=== PATIENT | female | born 1940 | race Caucasian/White ===

== ENCOUNTER 2022-02-28 13:40 | Observation (INO) | payer MEDICARE, OTHER, SELFPAY ==
[2022-02-28] VITALS (8 sets, daily range): BP systolic 127–163; BP diastolic 57–119; PULSE 68–84; RESP 14–20; TEMP 36.5–37.9; O2SAT 92–98
--- NOTE | 2022-02-28 14:04 | ED.GENADUL_ITS ---
Discharge Plan Disposition Patient Disposition: [facility] INPATIENT Condition: Serious Discharge Details Clinical Impression: Aspiration pneumonia, Dysphasia, Dementia Primary Care Provider: Joyce Brownlee ED Provider: Gail Hwang Home Meds and New Rx's Prescriptions: No Action fluticasone propion-salmeterol [Wixela Inhub] 250-50 mcg/dose blister with device 1 ea INHALATION BID Label Comments: TAKE 1 PUFF BY MOUTH TWICE A DAY phenazopyridine [Pyridium] 200 mg Tablet 200 mg PO TID PRN alprazolam 0.5 mg tablet 1 tab PO TID PRN (Reason: Agitation) Label Comments: TAKE 1 TABLET 3 TIMES/DAY NEEDED FOR ANXIETY/AGITATION (IF NO RESPONSE TO TRAZODONE,MIRTAZAPINE) rosuvastatin 5 mg tablet 1 tab PO DAILY Label Comments: TAKE 1 TABLET BY MOUTH EVERY DAY nitrofurantoin monohyd/m-cryst 100 mg capsule 100 cap PO BID Label Comments: TAKE 1 CAPSULE BY MOUTH TWICE A DAY FOR 7 DAYS losartan 50 mg tablet 1 tab PO DAILY Label Comments: TAKE 1 TABLET BY MOUTH EVERY DAY trazodone 50 mg tablet 1 tab PO BID Label Comments: TAKE 1 TABLET BY MOUTH TWICE A DAY metoprolol succinate 50 mg tablet extended release 24 hr 1 tab PO DAILY Label Comments: TAKE 1 TABLET BY MOUTH EVERY DAY donepezil 10 mg tablet 1 tab PO HS Label Comments: TAKE 1 TABLET BY MOUTH EVERY DAY AT NIGHT alendronate 70 mg tablet 1 tab PO QWEEK Label Comments: TAKE 1 TABLET BY MOUTH ONE TIME PER WEEK sertraline 100 mg tablet 1.5 tab PO DAILY Label Comments: TAKE 1 AND 1/2 TABLETS BY MOUTH EVERY DAY clopidogrel 75 mg tablet 1 tab PO DAILY Label Comments: TAKE 1 TABLET BY MOUTH EVERY DAY aspirin 81 mg Capsule,Delayed Release(Dr/Ec) 81 mg PO DAILY albuterol sulfate 90 mcg/actuation Hfa Aerosol Inhaler 2 puff INHALATION QID PRN Spiriva with HandiHaler 18 mcg capsule, w/inhalation device 1 inh INHALATION DAILY Label Comments: INHALE 1 CAPSULE INTO THE LUNGS DAILY. mirtazapine 7.5 mg tablet 2 tab PO DAILY Label Comments: TAKE 2 TABLETS BY MOUTH TWICE A DAY Medical Decision Making <SALLY Calderón - Last Filed: 02/28/22 15:57> This is an 82-year-old female presenting to the ER for evaluation of increased urination, agitation, altered mental status over the past 24 hours, is vacationing here until Saturday. Family called her PCP and they initiated her on the Macrobid, has had a total of 2 doses. She is also on baseline Xanax which they gave her this morning. Her son, her POA, would like to initiate a medical work-up but not extensively as she would not like any heroic efforts made. Plan is to initiate IV access, give IV fluid, Ativan, and obtain routine screening laboratory values. Given she is on Plavix, will obtain CT of the head. Will not pursue cardiac work-up as would not want to pursue more aggressive intervention per son. White blood cell count of 13.57. We will add on a COVID swab and chest x-ray. Electrolytes unremarkable, urinalysis reveals 40 ketones but negative for blood, nitrates, leuk esterase. The patient has had 2 doses of antibiotics and this may give false results for her urinalysis. Patient was unable to hold still to have an IV established. Plan is to give 1 mg p.o. Ativan and attempt to reattempt IV access. Patient would likely benefit from IV fluid given the ketones in her urine. IV access obtained. Plan is to provide 2 L of IV fluid Medical Records Medical records reviewed: Yes I reviewed the patient's medical records. Lab Data Lab results reviewed: Yes I reviewed the patient's lab results. Labs: Laboratory Tests Range/Units 02/28/22 02/28/22 02/28/22 13:51 14:15 14:15 WBC (4.4-10.8) 10^3/uL 13.57 H RBC (3.93-5.22) 10^6/uL 4.53 Hgb (11.2-15.7) g/dL 14.2 Hct (36.0-46.0) % 42.0 MCV (80-95) fL 93 MCH (27.0-33.0) pg 31.3 MCHC (32.0-36.0) % 33.8 RDW (11.7-14.6) % 13.4 Plt Count (130-400) 10^3/uL 203 MPV (8.0-11.0) fL 9.9 Immature Gran % 0.3 Neutrophils % 80.1 Lymphocytes % 12.5 Monocytes % 6.9 Eosinophils % 0.1 Basophils % 0.1 Nucleated RBC % (0.0-0.3) % 0.0 Absolute Neutrophils (1.2-6.7) 10^3/uL 10.87 H Absolute Lymphocytes (1.2-3.4) 10^3/uL 1.70 Absolute Monocytes (0.1-0.8) 10^3/uL 0.94 H Absolute Eosinophils (0.0-0.7) 10^3/uL 0.01 Absolute Basophils (0.0-0.2) 10^3/uL 0.01 Sodium (136-145) mmol/L 139 Potassium (3.5-5.1) mmol/L 3.9 Chloride (98-107) mmol/L 103 Carbon Dioxide (21.0-32.0) mmol/L 24.3 Anion Gap (3-11) mmol/L 11.7 H BUN (7-18) mg/dL 26 H Creatinine (0.55-1.02) mg/dL 0.9 Estimated GFR/1.73 m2 (mL/min/1.73m2) 59.80 Glucose (74-106) mg/dL 91 Calcium (8.5-10.1) mg/dL 9.1 Total Bilirubin (0.2-1.0) mg/dL 0.6 AST (15-37) U/L 27 ALT (14-59) U/L 24 Alkaline Phosphatase (46-116) U/L 81 Total Protein (6.4-8.2) g/dL 7.5 Albumin (3.4-5.0) g/dL 4.0 Lipase (73-393) U/L 14 Urine Color (Yellow) Yellow Urine Clarity (Clear) Clear Urine pH (5-8) 5.5 Ur Specific [place] (1.005-1.025) >= 1.030 H Urine Protein (Negative) mg/dL Negative Urine Ketones (Negative) mg/dL 40 H Urine Blood (Negative) Negative Urine Nitrite (Negative) Negative Urine Bilirubin (Negative) Small H Urine Urobilinogen (Up TO 0.2) EU/dL 0.2 Ur Leukocyte Esterase (Negative) Negative Urine Glucose (Negative) mg/dL Negative <SALLY Martino - Last Filed: 02/28/22 20:01> This is an 82-year-old female presenting to the ER for evaluation of increased urination, agitation, altered mental status over the past 24 hours, is vacationing here until Saturday. Family called her PCP and they initiated her on the Macrobid, has had a total of 2 doses. She is also on baseline Xanax which they gave her this morning. Her son, her POA, would like to initiate a medical work-up but not extensively as she would not like any heroic efforts made. Plan is to initiate IV access, give IV fluid, Ativan, and obtain routine screening laboratory values. Given she is on Plavix, will obtain CT of the hea d. Will not pursue cardiac work-up as would not want to pursue more aggressive intervention per son. White blood cell count of 13.57. We will add on a COVID swab and chest x-ray. Electrolytes unremarkable, urinalysis reveals 40 ketones but negative for blood, nitrates, leuk esterase. The patient has had 2 doses of antibiotics and this may give false results for her urinalysis. Patient was unable to hold still to have an IV established. Plan is to give 1 mg p.o. Ativan and attempt to reattempt IV access. Patient would likely benefit from IV fluid given the ketones in her urine. IV access obtained. Plan is to provide 2 L of IV fluid Care accepted in transfer from [facility] [address] [facility] chest shows aspiration pneumonia and large amount of stool in rectal vault Placed on Levaquin for likely aspiration pneumonia, COVID-negative Stable vitals in the emergency department, lactate elevated at 1.9, blood cultures pending Family states that patient is full CODE STATUS, this was confirmed Labs are indicative of dehydration Discussed case with Dr. Stafford, admitting hospitalist and after conversation, disimpaction performed, approximately 1.5 Of stool just did without incident Patient received 2 L of IV fluid hydration prior to my initial assessment Vitals have been stable throughout this encounter Patient will need likely suppositories and enema for continuous colon care HPI <SALLY Calderón - Last Filed: 02/28/22 15:57> General Mode of arrival: EMS . Date/Time Provider Initiated Documentation: 02/28/22 13:47 . Limitations to Documentation: other (Dementia, aphasia) . Information obtained by: family, EMS and old records reviewed . HPI Narrative: This is an 82-year-old female with past medical history that includes CAD, anxiety, aphasia, COPD, depression, hypertension, Alzheimer's dementia, does take Plavix, presenting to the ER for altered mental status, agitation, and increased urination over the past 24 hours. Family was able to contact her PCP and they called in Macrobid, she has had a total of 2 doses. They are here on vacation and the end of the week. Her son is her POA and present, reports that she should have her wishes on file but believes that she would not want life- saving measures. He is agreeable to initially obtaining IV access, giving IV fluid, a medication to help calm her down as she is anxious, and will obtain routine screening laboratory values. He states up until yesterday she seemed to be at her baseline mental status. Denies known recent trauma. Related Data Home Medications Medication Instructions Recorded Confirmed albuterol sulfate 90 mcg/actuation 2 puff inhalation QID PRN 02/28/22 02/28/22 aerosol inhaler alendronate 70 mg tablet 1 tab PO QWEEK 02/28/22 02/28/22 alprazolam 0.5 mg tablet 1 tab PO TID PRN Agitation 02/28/22 02/28/22 aspirin 81 mg capsule,delayed 81 mg PO DAILY 02/28/22 02/28/22 release clopidogrel 75 mg tablet 1 tab PO DAILY 02/28/22 02/28/22 donepezil 10 mg tablet 1 tab PO HS 02/28/22 02/28/22 fluticasone 250 mcg-salmeterol 50 1 ea inhalation BID 02/28/22 02/28/22 mcg/dose blistr powdr for inhalation (Teresa Inhub) losartan 50 mg tablet 1 tab PO DAILY 02/28/22 02/28/22 metoprolol succinate 50 mg 1 tab PO DAILY 02/28/22 02/28/22 tablet,extended release 24 hr mirtazapine 7.5 mg tablet 2 tab PO DAILY 02/28/22 02/28/22 nitrofurantoin 100 cap PO BID 02/28/22 02/28/22 monohydrate/macrocrystals 100 mg capsule phenazopyridine 200 mg tablet 200 mg PO TID PRN 02/28/22 02/28/22 (Pyridium) rosuvastatin 5 mg tablet 1 tab PO DAILY 02/28/22 02/28/22 sertraline 100 mg tablet 1.5 tab PO DAILY 02/28/22 02/28/22 tiotropium bromide 18 mcg capsule 1 inh inhalation DAILY 02/28/22 02/28/22 with inhalation device (Spiriva with HandiHaler) trazodone 50 mg tablet 1 tab PO BID 02/28/22 02/28/22 Allergies Allergy/AdvReac Type Severity Reaction Status Date / Time azithromycin Allergy Unknown Unverified 02/28/22 16:34 lidocaine Allergy Unknown Unverified 02/28/22 16:34 Penicillins Allergy Unknown Unverified 02/28/22 16:34 procaine Allergy Unknown Unverified 02/28/22 16:34 General Stated Complaint: AMS/LOC DARRIUS: 3 Review of Systems <SALLY Calderón - Last Filed: 02/28/22 15:57> Unobtainable due to mental status PFS <SALLY Calderón - Last Filed: 02/28/22 15:57> All Active Problems (Updated 02/28/22 @ 20:01 by SALLY Martino) Aspiration pneumonia (Acute) Dysphasia (Acute) Dementia (Chronic) Social History Smoking/Tobacco Use Status: Former Tobacco Use Smoking risk assessment performed?: Yes Alcohol Intake: never Drug use: Never Substance use type: does not use Additional Social history: lives with son Exam <SALLY Calderón - Last Filed: 02/28/22 15:57> Const General: comfortable and anxious Orientation: alert, awake and oriented to person (At baseline per son) Limitations: other limitations (Dementia, aphasia) [facility] Head: normal to inspection, normocephalic and atraumatic Face and sinus: normal facial exam Mouth: moist mucous membranes abnormal (Slightly dry) Eyes General: appearance normal, both eyes and all related structures Conjunctivae: conjunctivae normal Neck Neck: normal visual inspection, full ROM, trachea midline, supple and nontender Resp Effort & Inspection: normal respiratory effort and able to speak in complete sentences Auscultation: clear to auscultation bilaterally Cardio Rate: regular rate Rhythm: regular rhythm GI Inspection: normal to inspection Palpation: soft, not firm, no guarding, no pulsatile masses and nontender Auscultation: normal bowel sounds Back/Spine/Pelvis Back: No back tenderness Skin General skin exam: no rashes or lesions noted Neuro General: patient alert, patient awake, moves all extremities and no focal motor deficits Motor: muscle tone normal throughout Extrem General: normal to inspection, full ROM, capillary refill normal, no pedal edema and no calf tenderness Psych Appearance: grossly normal Mental Status: mental status grossly normal Course <SALLY Calderón - Last Filed: 02/28/22 15:57> Vital Signs Vital signs: Vital Signs Temperature 36.6 C 02/28/22 13:32 Respiratory Rate 18 02/28/22 13:32 Blood Pressure 131/57 L 02/28/22 13:32 Temperature 36.6 C 02/28/22 13:32 Temperature Source Skin 02/28/22 13:32 Respiratory Rate 18 02/28/22 13:32 Respiratory Effort 02/28/22 13:39 Blood Pressure 131/57 L 02/28/22 13:32 Blood Pressure Position Sitting 02/28/22 13:32 Sign Out <SALLY Calderón - Last Filed: 02/28/22 15:57> Sign Out Data: Sign Out Comment: Awaiting a head CT, chest x-ray, IV hydration and reassessment. Last updated by [facility] PA at 02/28/22 15:47
[2022-02-28 14:06] LABS: Bilirubin Small (Negative); Blood Negative (Negative); Clarity Clear (Clear); Glucose Negative (Negative); Ketones 40 mg/dL (Negative); Leukocyte Esterase Negative (Negative); Nitrite Negative (Negative); Specific Gravity >= 1.030 (1.005-1.025); Urobilinogen 0.2 EU/dL (Up TO 0.2); pH 5.5 (5-8)
[2022-02-28 14:23] LABS: Abs Immature Grans 0.04 10^3/uL (0.0-0.06); Absolute Neutrophil Count 10.87 10^3/uL (1.2-6.7); Basophils % 0.1; Eosinophils % 0.1; HGB 14.2 g/dL (11.2-15.7); Immature Grans % 0.3; Lymphocytes % 12.5; MCH 31.3 pg (27.0-33.0); MCHC 33.8 % (32.0-36.0); MCV 93 fL (80-95); MPV 9.9 fL (8.0-11.0); Monocytes % 6.9; Neutrophils % 80.1; Platelet Count 203 10^3/uL (130-400); RBC 4.53 10^6/uL (3.93-5.22); RDW 13.4 % (11.7-14.6); RDW-SD 45.9 fL; WBC 13.57 10^3/uL (4.4-10.8)
[2022-02-28 14:24] LABS: Absolute Basophil Count 0.01 10^3/uL (0.0-0.2); Absolute Eosinophil Count 0.01 10^3/uL (0.0-0.7); Absolute Monocyte Count 0.94 10^3/uL (0.1-0.8)
--- NOTE | 2022-02-28 14:38 | DI.RAD_ITS ---
Exam(s) XR CHEST 1V IN DI DEPT EXAM: XR CHEST 1V IN DI DEPT CLINICAL HISTORY: ams TECHNIQUE: 2D digital imaging was performed. COMPARISON: No exams were available for comparison FINDINGS: Limited exam due to patient inability to cooperate. LUNGS: Patchy density right lower lung field. There is some elevation of the right diaphragm. No pl eural abnormality seen. HEART: Normal. AORTA: Tortuous. BONES: Right shoulder prosthesis. Soft tissues: Unremarkable. IMPRESSION: Findings suspicious for right lower lobe infiltrate. DATA REPOSITORY: RADIATION DOSE DELIVERED:
--- NOTE | 2022-02-28 14:45 | DI.CT_ITS ---
Exam(s) CT HEAD WO EXAM: CT HEAD WO CLINICAL HISTORY: ams, on plavix. TECHNIQUE: Imaging Protocol: Axial computed tomography images with coronal and sagittal reformatted images were created and reviewed COMPARISON: No exams were available for comparison FINDINGS: Ventricles and Extra axial spaces: Atrophy. Normal in size and morphology for the patient's age. Hemorrhage: None. Cerebral parenchyma: Atrophy. White matter changes consistent with small vessel disease. Midline shift: None. Brainstem/Cerebellum: Normal. Calvarium: Normal. Visualized Paranasal sinuses/Mastoids: Clear. Exam limited by a patient motion. Patient not able to cooperate with exam. IMPRESSION: No acute abnormality. RADIATION DOSE DELIVERED: 806.35 mGy.cm Total DLP 806.35 mGy.cm Total DLP DATA REPOSITORY: All CT scans at this facility are submitted to the National Radiology Data Registry (NRDR) Dose Index Registry (DIR) with the [employer] (ACR). RADIATION OPTIMIZATION: All CT scans at this facility use at least one of these dose optimization te chniques: automated exposure control; mA and/or kV adjustment per patient size (includes targeted exa ms where dose is matched to clinical indication); or iterative reconstruction.
[2022-02-28] MEDS: LORazepam 1 MG TAB PO (14:50)
[2022-02-28 14:51] LABS: ALT 24 U/L (14-59); AST 27 U/L (15-37); Alkaline Phosphatase 81 U/L (46-116); Anion Gap 11.7 mmol/L (3-11); BUN 26 mg/dL (7-18); Bilirubin, Total 0.6 mg/dL (0.2-1.0); CO2 24.3 mmol/L (21.0-32.0); CREATININE 0.9 mg/dL (0.55-1.02); Calcium 9.1 mg/dL (8.5-10.1); Chloride 103 mmol/L (98-107); Glucose 91 mg/dL (74-106); Lipase 14 U/L (73-393); Potassium 3.9 mmol/L (3.5-5.1); Sodium 139 mmol/L (136-145); Total Protein 7.5 g/dL (6.4-8.2)
--- NOTE | 2022-02-28 14:55 | NUR.NOTE ---
Nursing Note: Difficulty getting IV due to pt movement despite 4 attempts and 4 staff at bedside. PA made aware, PO Lorazepam ordered and given. Will allow medication some time for effect and then will attempt again. Son at bedside, able to get few sips of water in
[2022-02-28] MEDS: Normal Saline 1,000 ML 1000 ML IV ×2 (15:31→17:17)
[2022-02-28 15:48] LABS: Source Nasal/Nares
--- NOTE | 2022-02-28 16:45 | DI.CT_ITS ---
Exam(s) CT CHEST/ABD/PEL WO EXAM: CT CHEST/ABD/PEL WO CLINICAL HISTORY: possible pneumonia, urinary frequency. TECHNIQUE: Imaging Protocol: Axial computed tomography images with coronal and sagittal reformatted images were created and reviewed CONTRAST MATERIAL: Intravenous: none Oral: None COMPARISON: CR XR CHEST 1V IN DI DEPT from 02/28/2022 FINDINGS: CHEST: LUNGS: There is tree in bud opacities in the superior segment of the right lower lobe as well as some infiltrate in both lower lobes, right more so than left. Mild infiltrate in the right middle lobe a nd lingular segment of the left lung. There are no pleural effusions. No bronchiectasis.. MEDIASTINUM: No obvious hilar nor mediastinal adenopathy. CARDIAC: Mild cardiomegaly. No pericardial effusion.Caliber thoracic aorta is upper normal. OSSEOUS: No significant osseous lesions.. ABDOMEN: There is no ascites. LIVER: There are no obvious focal hepatic lesions evident of this noninfused study. GALLBLADDER/BILIARY: Too much motion artifact for accurate assessment. CBD is not obviously dilated. PANCREAS: Too much motion artifact for accurate assessment. Appears somewhat atrophic. No obvious m ass. SPLEEN: Spleen is not enlarged. No obvious intrasplenic lesions. ADRENALS: There are no significant adrenal masses. KIDNEYS: No calculi nor hydronephrosis. No obvious solid renal masses. No cysts evident. ABDOMINAL AORTA: Abdominal aorta is not enlarged. LYMPH NODES: There is no retroperitoneal nor para-aortic adenopathy. ABDOMINAL WALL/GI: No evidence of significant anterior abdominal wall nor inguinal hernia. PELVIS: LYMPH NODES: There is no intrapelvic nor inguinal adenopathy. GI: No evidence of obvious appendicitis.No evidence of sigmoid diverticulitis.Abundant fecal material noted in the rectum. Air-filled bowel loops proximal to this. Rectum is distended to 7.5 x 7.5 cm. . Some stranding around the rectal wall is noted. No free fluid collection. URINARY BLADDER: No calculi nor obvious masses evident REPRODUCTIVE: Uterus size age-appropriate. No abnormal adnexal masses. OSSEOUS: Multilevel degenerative changes. No acute fractures. No osseous lesions. IMPRESSION: 1. Bilateral infiltrates as described above. No pleural effusions 2. Mild cardiomegaly. No pericardial effusion. 3. Rectal distension (7.5 cm diameter) and abundant fecal material in the rectum with air-filled shruti l loops proximal to this. Also abnormal stranding of the rectal wall. No hydronephrosis. RADIATION DOSE DELIVERED: 1,158.64mGy.cm Total DLP DATA REPOSITORY: All CT scans at this facility are submitted to the National Radiology Data Registry (NRDR) Dose Index Registry (DIR) with the [employer] (ACR). RADIATION OPTIMIZATION: All CT scans at this facility use at least one of these dose optimization te chniques: automated exposure control; mA and/or kV adjustment per patient size (includes targeted exa ms where dose is matched to clinical indication); or iterative reconstruction.
[2022-02-28 16:56] LABS: Lactate 1.9 mmol/L (0.6-1.4)
[2022-02-28 16:57] LABS: COVID-19 PCR Negative (Negative)
--- NOTE | 2022-02-28 17:00 | RT.EKG_ITS ---
APPROVED REPORT Exam: Resting ECG Reason for Exam: [facility] Patient Location: E HR:82 bpm ECG Measurements Heart Rate 82 AXIS GA 259 P 77 QRSd 88 QRS -20 QT 398 T 72 QTc 464 Conclusion Sinus rhythm...normal P axis, V-rate 60- 99 Prolonged GA interval...GA >220, V-rate 50- 90 Low voltage, extremity leads...all extremity leads <0.5mV
[2022-02-28] MEDS: LORazepam 2 MG/ML VIAL 0.5 MG IVP ×2 (17:14→19:55)
[2022-02-28] MEDS: cefTRIAXone 2 GM/50 ML BAG IVPB (18:31)
--- NOTE | 2022-02-28 18:50 | DI.VRAD_ITS ---
PROCEDURE INFORMATION: Exam: CT Chest Without Contrast; Diagnostic Exam date and time: 02/28/2022 5:42 PM Age: 82 years old Clinical indication: Other: Urinary frequency; Other: AMS TECHNIQUE: Imaging protocol: Diagnostic computed tomography of the chest without contrast. Total images: 3115 COMPARISON: CR XR CHEST 1V IN DI DEPT 02/28/2022 4:02 PM FINDINGS: Images are mildly degraded by motion. Lungs: There are subsegmental regions of tree in bud opacities in the superior segment of the right lower lobe and posteriorly within bilateral upper lobes. There is reticulation at both lung bases. Minimal right-sided traction bronchiectasis. No consolidation. Lung nodules: No suspicious pulmonary nodule. Pleural spaces: No pneumothorax. No pleural effusion. Heart: Moderate coronary artery calcification. Lymph nodes: No mediastinal, hilar or axillary adenopathy. Vasculature: Unremarkable. No aortic aneurysm. Diaphragm: Small hiatal hernia. Intraperitoneal space: Visualized upper abdomen is unremarkable. Bones/joints: Right shoulder replacement. Old compression deformity inferior endplate T9 associated with T9-10 degenerative disc disease. Moderate old compression fracture of T12. Soft tissues: Extrathoracic soft tissues are unremarkable. IMPRESSION: 1. Bilateral subsegmental regions of probable aspiration pneumonitis. 2. Possible early basilar fibrosis. PROCEDURE INFORMATION: Exam: CT Abdomen And Pelvis Without Contrast Exam date and time: 02/28/2022 5:42 PM Age: 82 years old Clinical indication: Other: Urinary frequency; Other: AMS TECHNIQUE: Imaging protocol: Computed tomography of the abdomen and pelvis without contrast. COMPARISON: CR XR CHEST 1V IN DI DEPT 02/28/2022 4:02 PM FINDINGS: Lungs: As above. Liver: No gross mass. Gallbladder and bile ducts: No calcified stones. No definite gallbladder wall thickening or biliary dilatation. Pancreas: Significant diffuse pancreatic atrophy. Spleen: No splenomegaly. Adrenal glands: No adrenal nodule. Kidneys and ureters: No hydronephrosis. No renal or ureteral calculi. Stomach and bowel: Stool distends the rectum which has a mildly thickened hyperemic wall and contains foci of intramural gas. There is perirectal stranding. No small bowel dilatation. Appendix: No evidence of appendicitis. Intraperitoneal space: No free air.Moderate presacral edema. Vasculature: No abdominal aortic aneurysm. Lymph nodes: No significant adenopathy. Urinary bladder: No bladder stone. No definite bladder wall thickening. Reproductive: Unremarkable as visualized. Bones/joints: Significant lower lumbar facet arthropathy. Thoracolumbar scoliosis. Lumbar degenerative disc disease most significant at L1-L2 and L2-L3. Soft tissues: Extra-abdominal soft tissues are unremarkable. IMPRESSION: 1. No signs of pyelonephritis or cystitis on this noncontrast study. 2. Stercoral colitis. Dictated and Authenticated by: Luis Correa MD. Ordering:KIARA Reynolds MD
[2022-02-28] MEDS: levoFLOXacin 750 MG/150 ML BAG 100 MG IVPB (19:55)
--- NOTE | 2022-02-28 20:25 | HPE_ITS ---
Date of service: 02/28/22 Time of Service: 20:25 Assessment and Plan Assessment and plan (1) Stercoral colitis: Status: Acute Assessment and plan: 82 yo woman with likely chronic constipation (rectal wall thickening) resulting in stercoral colitis confirmed on CT imaging. Her stool load is very large and is causing significant distention of her rectum (7.2cm). I have requested for the ED provider to attempt a disimpaction as I worry an enema will not make it through the amount of stool present. With this distension she is certainly at risk for sepsis from gut translocation, although she is currently stable. Given this risk I do think it is important to cover abdominal pathogens. She has a pen icillin allergy so will keep Levaquin but add Flagyl for added abdominal coverage. - continue Levaquin - start Flagyl - Heme-occult testing - flat plate in am - low dose morphine prn for pain - f/u blood culture - full liquid diet as able - consider surgical consultation if not improving (2) Acute constipation: Status: Acute Assessment and plan: Likely acute on chronic constipation due to rectal wall thickening and prescence of stercoral colitis. ED provider to attempt disimpaction, but will also order for mineral oil enemas as well as an aggressive bowel regimen. - disimpaction - mineral oil enema after disimpaction and prn - Miralax standing bid - docusate/senna standing (3) Aspiration pneumonia: Status: Acute Assessment and plan: Concern for aspiration on CT. She is already on Levaquin which will cover respiatory pathogens. - ADVANCED DEVELOPER consultation - Full liquid diet for now as able (4) Dementia: Status: Chronic Assessment and plan: Altered from baseline (5) UTI (urinary tract infection): Status: Acute Assessment and plan: Received 2 doses of Macrobid as outpatient. UA in the ED looks clean. Levaquin will cover urinary pathogens if any are left. She is also on pyridium at home and will continue this. (6) Dysphasia: Status: Acute Assessment and plan: As above - ADVANCED DEVELOPER consult (7) Agitation: Status: Acute Assessment and plan: On chronic benzo's - will continue these. Some of the agitation could be due to pain from the rectal distention and colitis. I will put a low dose prn morphin on the OCT. (8) Altered mental status: Status: Acute Assessment and plan: As above - will have options for pain control in addition to her home medications including trazodone, sertraline, Ativan (9) Leukocytosis: Status: Acute Assessment and plan: reactive versus infection (10) COPD (chronic obstructive pulmonary disease): Status: Chronic Assessment and plan: Will continue home inhalers (11) HTN (hypertension): Status: Chronic Assessment and plan: Continue home meds - losartan and metoprolol (12) HLD (hyperlipidemia): Status: Acute Assessment and plan: Continue home rosuvastatin History of Present Illness Narrative: This is a 82 yo woman who is vacationing here and developed what was thought to be a UTI with increased urination, agitation and AMS. Her family called her PCP who prescribed nitrofurantoin. She was not improving and so was brought to the ED. On evaluation in the ED she was found to have anormal UA (after 2 doses of Macrobid), chest CT findings consistent with aspiration pneumonitis as well as sterocoral colitis with significant constipation and rectal wall thickening (no evidence of perforation). She was quite agitated in the ED and has received a significant amount of Ativan (she is on this chronically). She was started on Levaquin in the ED for concern of aspiration pneumonia. Her son is the DPOA who spoke to the ED providing and said they would not want heroic measures but told the ED provider she is full code. Her baseline mental status is abnormal however she does recognize family and is not as agitated as on presentation. She is significantly more confused from baseline. She had a disimpaction done in the ED which I followed with a mineral oil enema. She is unable to provide a history due to agitation. Review of Systems Unobtainable due to mental status [facility] All Active Problems (Updated 02/28/22 @ 21:45 by Barb Rivera MD) HLD (hyperlipidemia) (Acute) HTN (hypertension) (Chronic) COPD (chronic obstructive pulmonary disease) (Chronic) Leukocytosis (Acute) Altered mental status (Acute) Agitation (Acute) Acute constipation (Acute) UTI (urinary tract infection) (Acute) Stercoral colitis (Acute) Aspiration pneumonia (Acute) Dysphasia (Acute) Dementia (Chronic) Social History Smoking/Tobacco Use Status: Former Tobacco Use Smoking risk assessment performed?: Yes Alcohol Intake: never Drug use: Never Substance use type: does not use Additional Social history: lives with son Meds Allergies and Home Medications Allergies Allergy/AdvReac Type Severity Reaction Status Date / Time azithromycin Allergy Unknown Unverified 02/28/22 16:34 lidocaine Allergy Unknown Unverified 02/28/22 16:34 Penicillins Allergy Unknown Unverified 02/28/22 16:34 procaine Allergy Unknown Unverified 02/28/22 16:34 Home Medications Medication Instructions Recorded Confirmed Type albuterol sulfate 90 mcg/actuation 2 puff inhalation QID PRN 02/28/22 02/28/22 History aerosol inhaler alendronate 70 mg tablet 1 tab PO QWEEK 02/28/22 02/28/22 History alprazolam 0.5 mg tablet 1 tab PO TID PRN Agitation 02/28/22 02/28/22 History aspirin 81 mg capsule,delayed 81 mg PO DAILY 02/28/22 02/28/22 History release clopidogrel 75 mg tablet 1 tab PO DAILY 02/28/22 02/28/22 History donepezil 10 mg tablet 1 tab PO HS 02/28/22 02/28/22 History fluticasone 250 mcg-salmeterol 50 1 ea inhalation BID 02/28/22 02/28/22 History mcg/dose blistr powdr for inhalation (Teresa Jacquesub) losartan 50 mg tablet 1 tab PO DAILY 02/28/22 02/28/22 History metoprolol succinate 50 mg 1 tab PO DAILY 02/28/22 02/28/22 History tablet,extended release 24 hr mirtazapine 7.5 mg tablet 2 tab PO DAILY 02/28/22 02/28/22 History nitrofurantoin 100 cap PO BID 02/28/22 02/28/22 History monohydrate/macrocrystals 100 mg capsule phenazopyridine 200 mg tablet 200 mg PO TID PRN 02/28/22 02/28/22 History (Pyridium) rosuvastatin 5 mg tablet 1 tab PO DAILY 02/28/22 02/28/22 History sertraline 100 mg tablet 1.5 tab PO DAILY 02/28/22 02/28/22 History tiotropium bromide 18 mcg capsule 1 inh inhalation DAILY 02/28/22 02/28/22 History with inhalation device (Spiriva with HandiHaler) trazodone 50 mg tablet 1 tab PO BID 02/28/22 02/28/22 History Exam Narrative Exam Narrative: Gen: NAD, normal respiratory effort, well-nourished HENT: PERRL Chest: No respiratory distress, normal appearance of chest, clear to auscultat ion bilaterally, no crackles or wheezes, normal inspiratory effort Heart: regular rate and rhythym, no murmurs, rubs or gallops Abdomen: Non-distended, soft, non tender Extremities: No clubbing, edema, cyanosis, rashes Neuro: AAOx3 , non focal Psych: cooperative, appropriate mental affect Results Imaging CT scan - chest: report reviewed and image reviewed CT scan - pelvis: report reviewed and image reviewed Labs Result diagrams: 02/28/22 14:15 02/28/22 14:15 Labs: Laboratory Results - last 24 hr 02/28/22 02/28/22 02/28/22 13:51 14:15 14:15 WBC 13.57 H RBC 4.53 Hgb 14.2 Hct 42.0 MCV 93 MCH 31.3 MCHC 33.8 RDW 13.4 Plt Count 203 MPV 9.9 Immature Gran % 0.3 Neutrophils % 80.1 Lymphocytes % 12.5 Monocytes % 6.9 Eosinophils % 0.1 Basophils % 0.1 Nucleated RBC % 0.0 Absolute Neutrophils 10.87 H Absolute Lymphocytes 1.70 Absolute Monocytes 0.94 H Absolute Eosinophils 0.01 Absolute Basophils 0.01 VBG Lactate Sodium 139 Potassium 3.9 Chloride 103 Carbon Dioxide 24.3 Anion Gap 11.7 H BUN 26 H Creatinine 0.9 Estimated GFR/1.73 m2 59.80 Glucose 91 Calcium 9.1 Total Bilirubin 0.6 AST 27 ALT 24 Alkaline Phosphatase 81 Total Protein 7.5 Albumin 4.0 Lipase 14 Urine Color Yellow Urine Clarity Clear Urine pH 5.5 Ur Specific Garber >= 1.030 H Urine Protein Negative Urine Ketones 40 H Urine Blood Negative Urine Nitrite Negative Urine Bilirubin Small H Urine Urobilinogen 0.2 Ur Leukocyte Esterase Negative Urine Glucose Negative COVID-19 Source SARS-CoV-2 (PCR) 02/28/22 02/28/22 15:33 16:40 WBC RBC Hgb Hct MCV MCH MCHC RDW Plt Count MPV Immature Gran % Neutrophils % Lymphocytes % Monocytes % Eosinophils % Basophils % Nucleated RBC % Absolute Neutrophils Absolute Lymphocytes Absolute Monocytes Absolute Eosinophils Absolute Basophils VBG Lactate 1.9 H Sodium Potassium Chloride Carbon Dioxide Anion Gap BUN Creatinine Estimated GFR/1.73 m2 Glucose Calcium Total Bilirubin AST ALT Alkaline Phosphatase Total Protein Albumin Lipase Urine Color Urine Clarity Urine pH Ur Specific Garber Urine Protein Urine Ketones Urine Blood Urine Nitrite Urine Bilirubin Urine Urobilinogen Ur Leukocyte Esterase Urine Glucose COVID-19 Source Nasal/Nares SARS-CoV-2 (PCR) Negative Last Vital Signs Temp 36.5 C 02/28/22 17:05 Pulse 80 02/28/22 17:05 Resp 20 02/28/22 17:05 BP 131/57 L 02/28/22 13:36 Pulse Ox 94 02/28/22 17:05
[2022-02-28] MEDS: metroNIDAZOLE 500 MG/100 ML BAG 100 MG IVPB (22:19)
[2022-02-28] MEDS: Mirtazapine 15 MG TAB PO (22:19)
[2022-02-28] MEDS: traZODone 50 MG TAB PO (22:19)
[2022-02-28] MEDS: Donepezil 5 MG TAB 10 MG PO (22:19)
[2022-02-28] MEDS: Mineral Oil-Enema 133 ML BTL PR (22:55)
[2022-03-01] VITALS (9 sets, daily range): BP systolic 127–169; BP diastolic 72–90; PULSE 53–81; RESP 14–20; TEMP 36.8–37.2; O2SAT 92–97
[2022-03-01] MEDS: MORPHine 10 MG/ML VIAL IVP (01:12)
[2022-03-01 02:27] LABS: Troponin I < 50 ng/L (<or=60)
[2022-03-01] MEDS: LORazepam 0.5 MG TAB PO ×2 (04:54→07:39)
[2022-03-01] MEDS: metroNIDAZOLE 500 MG/100 ML BAG 100 MG IVPB ×3 (06:14→21:36)
[2022-03-01] MEDS: Metoprolol CR 50 MG TABCR PO (07:39)
[2022-03-01] MEDS: Clopidogrel 75 MG TAB PO (07:39)
[2022-03-01] MEDS: Polyethylene Glycol 3350 17 GM PACKET PO ×2 (07:39→19:14)
[2022-03-01] MEDS: Aspirin E.C. 81 MG TABEC PO (07:39)
[2022-03-01] MEDS: Rosuvastatin 5 MG TAB PO (07:39)
[2022-03-01] MEDS: Sennosides/Docusate Sodium TAB 1 TAB PO ×2 (07:40→19:14)
[2022-03-01] MEDS: Sertraline 50 MG TAB 150 MG PO (07:40)
[2022-03-01] MEDS: Losartan 50 MG TAB PO (07:40)
--- NOTE | 2022-03-01 08:00 | DI.RAD_ITS ---
Exam(s) XR ABDOMEN FLAT PLATE EXAM: XR ABDOMEN FLAT PLATE CLINICAL HISTORY: Stercoral colitis. TECHNIQUE: 2D digital imaging was performed. COMPARISON: No exams were available for comparison FINDINGS: Single view (3 images) There is catheter tubing seen over the left side of the abdomen. There air-filled bowel loops throughout both sides of the abdomen and pelvis. There is abundant feca l material in the rectum this finding might be related to the rectal fecal material retention. Stoma ch is also filled with air and mildly distended. Left upper quadrant small bowel loops are filled wi th air but not distended. Entire colon is distended with air. Osteopenia and multiple compression fractures noted in the in the visualized thoracic and lumbar spin es. IMPRESSION: DATA REPOSITORY: RADIATION DOSE DELIVERED:
--- NOTE | 2022-03-01 09:28 | INITIAL_ITS ---
- If Service Date Differs Date of service: 03/01/22 Time of Service: 09:28 Care Management Initial Assess PAST MEDICAL HISTORY/PAST SURGICAL HISTORY:: All Active Problems (Updated 02/28/22 @ 21:45 by Barb Rivera MD). HLD (hyperlipidemia) (Acute). HTN (hypertension) (Chronic). COPD (chronic obstructive pulmonary disease) (Chronic). Leukocytosis (Acute). Altered mental status (Acute). Agitation (Acute). Acute constipation (Acute). UTI (urinary tract infection) (Acute). Stercoral colitis (Acute). Aspiration pneumonia (Acute). Dysphasia (Acute). Dementia (Chronic) PREVIOUS FUNCTIONAL STATUS/SOCIAL/FAMILY SUPPORTS:: Nery lives in [place], [place] with her son Shruthi who is also her DPOA. She has another son, Bear, who also lives in [place].Nery has severe dementia and requires total care with ADLs. CURRENT FUNCTIONAL STATUS:: Nery was lying in bed when CM met with her. She was unable to engage in meaningful conversation and was very agitated. Nery required sedation to complete testing and became sleepy and more somnolent later in the day. Nery was admitted because of stercoral colitis which is a form of severe constipation. Much of the day was spent by nursing attempting to assist Nery with having a bowel movement. The efforts were successful and she had one very large BM followed by a smaller one. Nery seemed less agitated after the BMs. The plan was to discharge her but because she was so somnolent, the provider decided it would be best to observre her overnight and discharge her tomorrow. CM and the provider discussed the plan witrh her sons and they agreed to take her home in the morning. ADVANCE DIRECTIVES:: none on file Has patient been provided with info about the portal/API?: Yes Did the patient sign up for the portal?: No CODE STATUS:: Full Code CODE STATUS COMMENT:: DPOA does not want heroic measures INSURANCE COVERAGE / FINANCIAL ISSUES:: Medicare PRIMARY CARE PHYSICIAN:: Joyce Brownlee POTENTIAL DISCHARGE NEEDS:: Follow up with community providers in [place] PATIENT/FAMILY EDUCATION NEEDS:: review of discharge instructionss, follow up plan, medications, limitations, activity, discuss [employer] TRANSPORTATION:: via private vehicle with family PLAN:: Nery will likely return home to [place] with no new services. She will follow up with her community providers there and transport with family. CM will follow and assess for discharge concerns.
--- NOTE | 2022-03-01 09:38 | NT_ITS ---
Date of service: 03/01/22 Time of Service: 09:39 PT Notes Visit Reasons: Stercoral Colitis Patient has had 2 doses of Valium per Charge Nurse Natalia and is not appropriate for evaluation at this time. Will attempt another eval this afternooon if level of alertness improves. Thank you for the opportunity to participate in the care of this patient. Alfreda Miner PT, DPT, CLT [facility] [place], [place]
[2022-03-01] MEDS: Bisacodyl 5 MG TABEC 10 MG PO (11:29)
[2022-03-01] MEDS: Bisacodyl 10 MG SUPP PR (11:30)
--- NOTE | 2022-03-01 13:12 | PDOC.STREC ---
Date of service: 03/01/22 Time of Service: 13:12 Speech Therapy Recommendations Report ST Recommendations: Consult recieved, chart reviewed. Attempting to contact patient this afternoon at least to assess tolerance of thin liquids, patient was unable to participate in PT this am due to somnolence and remains unrousable for this clinician at this time. Patient remains on full liquid diet due to acute GI. For the time being, aspiration risk management should focus on increased frequency of oral care: BID and before/after PO intake. Will attempt to re-contact patient tomorrow if appropriate. If patient is discharged prior to ECONOMIC ANALYSIS DIRECTOR evaluation, recommend ECONOMIC ANALYSIS DIRECTOR services at discharge location with consideration of MBSS on outpatient basis. Coding
--- NOTE | 2022-03-01 15:26 | W.PM.PROGNOT ---
Date of Service Date of service: 03/01/22 Time of Service: 15:27 Assessment and Plan Assessment and plan (1) Stercoral colitis: Status: Acute Assessment and plan: at risk for sepsis from gut translocation, although she is currently stable and now stooling. Given this risk continue to cover abdominal pathogens. She has a penicillin allergy so will keep Levaquin but add Flagyl for added abdominal coverage. - continue Levaquin and flagyl day 2/5 - f/u blood culture - full liquid diet as able - consider surgical consultation if not improving (2) Acute constipation: Status: Acute Assessment and plan: Likely acute on chronic constipation due to rectal wall thickening and prescence of stercoral colitis. Continue aggressive bowel regimen. -dulcolax added -giving mag citrate - Miralax standing bid - docusate/senna standing (3) Aspiration pneumonia: Status: Acute Assessment and plan: Concern for aspiration on CT. She is already on Levaquin which will cover respiatory pathogens. - STEEL CONSTRUCTION WORKER consultation - Full liquid diet for now as able (4) Dementia: Status: Chronic Assessment and plan: Altered from baseline and likely d/t severe constipation, new environment, and possible pneumonia. continue safety precautions (5) UTI (urinary tract infection): Status: Acute Assessment and plan: Received 2 doses of Macrobid as outpatient. UA in the ED looks clean. Levaquin will cover urinary pathogens if any are left. She is also on pyridium at home and will continue this. (6) Dysphasia: Status: Acute Assessment and plan: As above - STEEL CONSTRUCTION WORKER consult (7) Agitation: Status: Acute Assessment and plan: On chronic benzo's - will continue these. Some of the agitation could be due to pain from the rectal distention and colitis. consider seroquel if needed. will try to avoid sedative medication in hopes of discharge tomorrow. (8) Altered mental status: Status: Acute Assessment and plan: As above - continue home medications including trazodone, sertraline, Ativan (9) Leukocytosis: Status: Acute Assessment and plan: likely reactive versus infection (10) COPD (chronic obstructive pulmonary disease): Status: Chronic Assessment and plan: Will continue home inhalers respiratiory status stable. (11) HTN (hypertension): Status: Chronic Assessment and plan: Continue home meds - losartan and metoprolol (12) HLD (hyperlipidemia): Status: Acute Assessment and plan: Continue home rosuvastatin (13) Discharge planning issues: Status: Acute Assessment and plan: anticipate a discharge home tomorrow if medically stable. anticipate difficulty d/t her acute delirium on chronic baseline dementia which will be worsened while hospitalized. no home services anticipated. discharge discussed with DR Herrera. Subjective Subjective Patient reports: no new complaints, tolerating liquids well and bowel movement; denies shortness of breath Interval history since last seen: patient remains hemodynamically stable. she is combative with staff, she is taking PO. she is not oriented or re-directable, she is thought to be at her baseline, maybe with acute delirium secondary to severe constipation. Exam Const General: healthy appearing, comfortable, no acute distress and frail appearing Nutritional Appearance: average body habitus Orientation: oriented to person (At baseline per son) Limitations: other limitations (Dementia, aphasia) [facility] Head: normal to inspection, normocephalic and atraumatic Face and sinus: normal facial exam Mouth: moist mucous membranes abnormal (Slightly dry) Eyes General: appearance normal, both eyes and all related structures Conjunctivae: conjunctivae normal Neck Neck: normal visual inspection, full ROM, trachea midline, supple and nontender Resp Effort & Inspection: normal respiratory effort and able to speak in complete sentences Auscultation: clear to auscultation bilaterally Cardio Rate: regular rate Rhythm: regular rhythm GI Inspection: normal to inspection Palpation: soft, not firm, no guarding and nontender Auscultation: normal bowel sounds Back/Spine/Pelvis Back: No back tenderness Skin General skin exam: no rashes or lesions noted Neuro General: moves all extremities and no focal motor deficits Motor: muscle tone normal throughout Extrem General: normal to inspection, full ROM, capillary refill normal, no pedal edema and no calf tenderness Psych Appearance: grossly normal Mental Status: mental status grossly normal Objective Last Vital Signs Temp 36.8 C 03/01/22 11:31 Pulse 60 03/01/22 11:31 Resp 18 03/01/22 11:31 BP 127/72 03/01/22 11:31 Pulse Ox 95 03/01/22 11:31 Laboratory Results - last 24 hr 02/28/22 02/28/22 03/01/22 15:33 16:40 02:05 VBG Lactate 1.9 H Troponin I < 50 COVID-19 Source Nasal/Nares SARS-CoV-2 (PCR) Negative
[2022-03-01] MEDS: Mineral Oil-Enema 133 ML BTL PR (16:07)
[2022-03-01] MEDS: levoFLOXacin 750 MG/150 ML BAG 100 MG IVPB (19:14)
[2022-03-01] MEDS: Budesonide/Formoterol 160/4.5 6 GM 60 PUFF INH IH (19:32)
[2022-03-01] MEDS: Donepezil 5 MG TAB 10 MG PO (21:38)
[2022-03-01] MEDS: Mirtazapine 15 MG TAB PO (21:39)
[2022-03-01] MEDS: traZODone 50 MG TAB PO (21:39)
[2022-03-02] MEDS: metroNIDAZOLE 500 MG/100 ML BAG 100 MG IVPB (05:38)
[2022-03-02] MEDS: Tiotropium Bromide-Respimat 10 PUFF INH IH (07:32)
[2022-03-02] MEDS: Budesonide/Formoterol 160/4.5 6 GM 60 PUFF INH IH (07:32)
[2022-03-02 08:02] LABS: Troponin I < 50 ng/L (<or=60)
[2022-03-02 08:03] LABS: ALT 14 U/L (14-59); AST 26 U/L (15-37); Abs Immature Grans 0.03 10^3/uL (0.0-0.06); Absolute Basophil Count 0.02 10^3/uL (0.0-0.2); Absolute Eosinophil Count 0.12 10^3/uL (0.0-0.7); Absolute Lymphocyte Count 1.98 10^3/uL (1.2-3.4); Absolute Monocyte Count 0.94 10^3/uL (0.1-0.8); Absolute Neutrophil Count 7.59 10^3/uL (1.2-6.7); Albumin 2.8 g/dL (3.4-5.0); Alkaline Phosphatase 60 U/L (46-116); Anion Gap 10.3 mmol/L (3-11); BUN 15 mg/dL (7-18); Basophils % 0.2; Bilirubin, Total 0.6 mg/dL (0.2-1.0); CO2 24.7 mmol/L (21.0-32.0); CREATININE 0.6 mg/dL (0.55-1.02); Calcium 8.1 mg/dL (8.5-10.1); Chloride 107 mmol/L (98-107); Eosinophils % 1.1; Glucose 73 mg/dL (74-106); HCT 38.8 % (36.0-46.0); HGB 12.3 g/dL (11.2-15.7); Immature Grans % 0.3; Lymphocytes % 18.5; MCH 30.2 pg (27.0-33.0); MCHC 31.7 % (32.0-36.0); MCV 95 fL (80-95); MPV 10.3 fL (8.0-11.0); Monocytes % 8.8; Neutrophils % 71.1; Platelet Count 166 10^3/uL (130-400); Potassium 3.1 mmol/L (3.5-5.1); RBC 4.07 10^6/uL (3.93-5.22); RDW 13.7 % (11.7-14.6); RDW-SD 48.2 fL; Sodium 142 mmol/L (136-145); Total Protein 6.2 g/dL (6.4-8.2); WBC 10.68 10^3/uL (4.4-10.8)
[2022-03-02 08:12] VITALS: BP 156/63; PULSE 68; RESP 16; TEMP 36.9; O2SAT 92
[2022-03-02] MEDS: Polyethylene Glycol 3350 17 GM PACKET PO (08:54)
[2022-03-02] MEDS: Metoprolol CR 50 MG TABCR PO (08:55)
[2022-03-02] MEDS: Rosuvastatin 5 MG TAB PO (08:55)
[2022-03-02] MEDS: Sennosides/Docusate Sodium TAB 1 TAB PO (08:55)
[2022-03-02] MEDS: Clopidogrel 75 MG TAB PO (08:55)
[2022-03-02] MEDS: Sertraline 50 MG TAB 150 MG PO (08:56)
[2022-03-02] MEDS: Aspirin E.C. 81 MG TABEC PO (08:56)
[2022-03-02] MEDS: Losartan 50 MG TAB PO (08:56)
--- NOTE | 2022-03-02 09:15 | W.PM.DS.N ---
Date of service: 03/02/22 Time of Service: 09:16 DS: Diagnosis Discharge Diagnosis (1) Stercoral colitis: Status: Acute (2) Aspiration pneumonia: Status: Acute (3) Dementia: Status: Chronic (4) UTI (urinary tract infection): Status: Acute (5) Dysphasia: Status: Acute (6) Leukocytosis: Status: Acute (7) COPD (chronic obstructive pulmonary disease): Status: Chronic (8) HTN (hypertension): Status: Chronic Discharge Plan Disposition Patient Disposition: HOME Condition: Serious Discharge Details Reason For Visit: Stercoral Colitis Admit Date/Time: 02/28/22 19:42 Admit Provider: Barb Rivera Attending Provider: Barb Rivera Primary Care Provider: Joyce Brownlee Hospital Course Hospital Course: This is a 82-year-old female patient past medical history that includes CAD, anxiety, aphasia, COPD, depression, hypertension, and Alzheimer's dementia presented to the emergency department for evaluation of agitation, altered mental status and increased urination for 24 hours. She is here on vacation. Her son called her PCP 02/28/2022 and described her symptoms and she was put on Macrobid for urinary tract infection she had total of 2 doses. In the emergency department an IV was initiated she received fluid and Ativan for agitation and blood work. Her white blood cell count 13.57. Negative COVID. Electrolytes unremarkable. Urinalysis was positive for ketones no blood nitrates or leukocytes. The emergency department she was treated for constipation by disimpaction followed with a mineral oil enema. Is admitted to the hospital with Levaquin and Flagyl started. She is stooling on her own has no complaints and will be discharged home with her son we will continue Levaquin and Flagyl for total course of 5 days and discontinue nitrofurantoin. Home Meds and New Rx's Prescriptions: New metronidazole 500 mg tablet 500 mg PO TID Qty: 12 0RF levofloxacin 750 mg tablet 750 mg PO DAILY 4 Days Qty: 4 0RF Discontinued alprazolam 0.5 mg tablet 1 tab PO TID PRN (Reason: Agitation) Label Comments: TAKE 1 TABLET 3 TIMES/DAY NEEDED FOR ANXIETY/AGITATION (IF NO RESPONSE TO TRAZODONE,MIRTAZAPINE) nitrofurantoin monohyd/m-cryst 100 mg capsule 100 cap PO BID Label Comments: TAKE 1 CAPSULE BY MOUTH TWICE A DAY FOR 7 DAYS No Action fluticasone propion-salmeterol [Wixela Inhub] 250-50 mcg/dose blister with device 1 ea INHALATION BID Label Comments: TAKE 1 PUFF BY MOUTH TWICE A DAY phenazopyridine [Pyridium] 200 mg Tablet 200 mg PO TID PRN rosuvastatin 5 mg tablet 1 tab PO DAILY Label Comments: TAKE 1 TABLET BY MOUTH EVERY DAY losartan 50 mg tablet 1 tab PO DAILY Label Comments: TAKE 1 TABLET BY MOUTH EVERY DAY trazodone 50 mg tablet 1 tab PO BID Label Comments: TAKE 1 TABLET BY MOUTH TWICE A DAY metoprolol succinate 50 mg tablet extended release 24 hr 1 tab PO DAILY Label Comments: TAKE 1 TABLET BY MOUTH EVERY DAY donepezil 10 mg tablet 1 tab PO HS Label Comments: TAKE 1 TABLET BY MOUTH EVERY DAY AT NIGHT alendronate 70 mg tablet 1 tab PO QWEEK Label Comments: TAKE 1 TABLET BY MOUTH ONE TIME PER WEEK sertraline 100 mg tablet 1.5 tab PO DAILY Label Comments: TAKE 1 AND 1/2 TABLETS BY MOUTH EVERY DAY clopidogrel 75 mg tablet 1 tab PO DAILY Label Comments: TAKE 1 TABLET BY MOUTH EVERY DAY aspirin 81 mg Capsule,Delayed Release(Dr/Ec) 81 mg PO DAILY albuterol sulfate 90 mcg/actuation Hfa Aerosol Inhaler 2 puff INHALATION QID PRN Spiriva with HandiHaler 18 mcg capsule, w/inhalation device 1 inh INHALATION DAILY Label Comments: INHALE 1 CAPSULE INTO THE LUNGS DAILY. mirtazapine 7.5 mg tablet 2 tab PO DAILY Label Comments: TAKE 2 TABLETS BY MOUTH TWICE A DAY Discharge Instructions Instructions: Metronidazole (By mouth), Levofloxacin (By mouth), Polyethylene Glycol 3350 (By mouth), Probiotic (By mouth), Constipation (DC) Additional Instructions: Follow up with your PCP in 1-2 weeks, sooner if not improving. Drink plenty of fluids; take your medication until it is finished. Take probiotics while you are taking the antibiotic. Take miralax twice a day Stand Alone Forms: Nursing Discharge Form Referrals: None,None [ NON-[facility] STAFF PHYSICIAN] - (PLEASE CALL YOUR DOCTOR TO SET UP AN APPOINTMENT IN THE NEXT 2 WEEKS ) Activity:: Activity as Tolerated Equipment/Supplies:: No Equipment Needed Diet:: Low Sodium Discharge Orders Discharge Orders: Discharge Order (Routine); Ordered 03/02/22 Ordered By: Lois Rivera Discharge Data Discharge Date/Time-TO BE ENTERED AT DEPARTURE: 03/02/22 12:02 DS: Summary Time Spent with Patient providing and/or coordinating discharge services: Greater than 30 minutes Status at Discharge Functional status at discharge: independent ambulation Overall status at discharge: patient is progressing back to baseline Mental Status: mental status grossly normal Speech and Movement: speech and movement normal Mood: congruent mood Affect: normal affect Exam Psych Mental Status: mental status grossly normal Speech and Movement: speech and movement normal Mood: congruent mood Affect: normal affect DS: Data Vitals/I&O Vitals and I&O: Vital Signs Temperature 36.9 C 03/02/22 08:12 Temperature Source Tympanic 03/02/22 08:12 Pulse 68 03/02/22 08:12 Pulse Rhythm Regular 03/02/22 09:05 Respiratory Rate 16 03/02/22 08:12 Respiratory Effort 03/02/22 09:05 Respiratory Depth Normal 03/02/22 09:05 Respiratory Pattern Normal 03/02/22 09:05 Blood Pressure 156/63 H 03/02/22 08:12 Blood Pressure Mean 77 02/28/22 13:36 Blood Pressure Position Sitting 02/28/22 13:32 Pulse Oximetry 92 03/02/22 08:12 Oxygen Delivery Method Room Air 03/02/22 08:12 Oxygen Flow Rate 0 03/02/22 08:12 Pain Level 3 03/02/22 08:12 Comment 03/01/22 22:30 Intake & Output 03/01/22 03/01/22 03/02/22 11:59 23:59 11:59 Intake Total 100 / 300 200 / 300 120 / 120 Output Total 650 / 650 Balance -550 / -350 200 / -350 120 / 120 Weight 71.9 kg 71.2 kg Intake: IV 100 / 300 200 / 300 Oral 120 / 120 Output: Urine 650 / 650 Other: Urine Color Straw Urine Appearance Clear Comment total bed change Stool Occult Blood Negative Negative Stool Size Smear Large Stool Characteristics Formed Brown Voiding Methods Bedside Commode Data Completed and Pending Labs on day of discharge: Labs from last 24 hours 03/02/22 03/02/22 03/02/22 07:10 07:10 07:10 WBC 10.68 RBC 4.07 Hgb 12.3 Hct 38.8 MCV 95 MCH 30.2 MCHC 31.7 L D RDW 13.7 Plt Count 166 MPV 10.3 Immature Gran % 0.3 Neutrophils % 71.1 Band Neutrophils % Lymphocytes % 18.5 Atypical Lymphs % Monocytes % 8.8 Eosinophils % 1.1 Basophils % 0.2 Metamyelocytes % Myelocytes % Promyelocytes % Other Cells % Nucleated RBC % 0.0 Absolute Neutrophils 7.59 H Absolute Lymphocytes 1.98 Absolute Monocytes 0.94 H Absolute Eosinophils 0.12 Absolute Basophils 0.02 RBC Morphology Polychromasia Hypochromasia Poikilocytosis Basophilic Stippling Anisocytosis Microcytosis Macrocytosis Spherocytes Tear Drop Cells Ovalocytes Stomatocytes [place] Bodies [place] Cells/Echinocytes Acanthocytes (Spur) Schistocytes VBG Lactate Sodium 142 Potassium 3.1 L Chloride 107 Carbon Dioxide 24.7 Anion Gap 10.3 BUN 15 Creatinine 0.6 Estimated GFR/1.73 m2 >= 60.00 Glucose 73 L Calcium 8.1 L Total Bilirubin 0.6 AST 26 ALT 14 Alkaline Phosphatase 60 Troponin I Cancelled < 50 Total Protein 6.2 L Albumin 2.8 L 03/02/22 03/01/22 03/01/22 07:10 07:10 07:10 WBC Cancelled RBC Cancelled Hgb Cancelled Hct Cancelled MCV Cancelled MCH Cancelled MCHC Cancelled RDW Cancelled Plt Count Cancelled MPV Cancelled Immature Gran % Cancelled Neutrophils % Cancelled Band Neutrophils % Cancelled Lymphocytes % Cancelled Atypical Lymphs % Cancelled Monocytes % Cancelled Eosinophils % Cancelled Basophils % Cancelled Metamyelocytes % Cancelled Myelocytes % Cancelled Promyelocytes % Cancelled Other Cells % Cancelled Nucleated RBC % Cancelled Absolute Neutrophils Cancelled Absolute Lymphocytes Cancelled Absolute Monocytes Cancelled Absolute Eosinophils Cancelled Absolute Basophils Cancelled RBC Morphology Cancelled Polychromasia Cancelled Hypochromasia Cancelled Poikilocytosis Cancelled Basophilic Stippling Cancelled Anisocytosis Cancelled Microcytosis Cancelled Macrocytosis Cancelled Spherocytes Cancelled Tear Drop Cells Cancelled Ovalocytes Cancelled Stomatocytes Cancelled [place] Bodies Cancelled [place] Cells/Echinocytes Cancelled Acanthocytes (Spur) Cancelled Schistocytes Cancelled VBG Lactate 1.0 Cancelled Sodium Potassium Chloride Carbon Dioxide Anion Gap BUN Creatinine Estimated GFR/1.73 m2 Glucose Calcium Total Bilirubin AST ALT Alkaline Phosphatase Troponin I Total Protein Albumin 03/01/22 02/28/22 07:10 07:10 WBC RBC Hgb Hct MCV MCH MCHC RDW Plt Count MPV Immature Gran % Neutrophils % Band Neutrophils % Lymphocytes % Atypical Lymphs % Monocytes % Eosinophils % Basophils % Metamyelocytes % Myelocytes % Promyelocytes % Other Cells % Nucleated RBC % Absolute Neutrophils Absolute Lymphocytes Absolute Monocytes Absolute Eosinophils Absolute Basophils RBC Morphology Polychromasia Hypochromasia Poikilocytosis Basophilic Stippling Anisocytosis Microcytosis Macrocytosis Spherocytes Tear Drop Cells Ovalocytes Stomatocytes [place] Bodies [place] Cells/Echinocytes Acanthocytes (Spur) Schistocytes VBG Lactate Sodium Cancelled Potassium Cancelled Chloride Cancelled Carbon Dioxide Cancelled Anion Gap Cancelled BUN Cancelled Creatinine Cancelled Estimated GFR/1.73 m2 Cancelled Glucose Cancelled Calcium Cancelled Total Bilirubin Cancelled AST Cancelled ALT Cancelled Alkaline Phosphatase Cancelled Troponin I Cancelled Total Protein Cancelled Albumin Cancelled Preliminary micro results at discharge 02/28/22 17:00 Blood Culture - Preliminary Blood NO GROWTH 24 HOURS 02/28/22 18:18 Blood Culture - Preliminary Blood NO GROWTH 24 HOURS PFSH All Active Problems (Updated 03/03/22 @ 00:01 by ELYSSA GIBBS) HTN (hypertension) (Chronic) COPD (chronic obstructive pulmonary disease) (Chronic) Leukocytosis (Acute) UTI (urinary tract infection) (Acute) Stercoral colitis (Acute) Aspiration pneumonia (Acute) Dysphasia (Acute) Dementia (Chronic) Medical History (Updated 03/03/22 @ 00:01 by ELYSSA GIBBS) Acute constipation Agitation Altered mental status HLD (hyperlipidemia) Social History Smoking/Tobacco Use Status: Former Tobacco Use Smoking risk assessment performed?: Yes Alcohol Intake: never Drug use: Never Substance use type: does not use Additional Social history: lives with son
[2022-03-02] MEDS: Potassium Chloride 20 MEQ TABCR 40 MEQ PO (10:19)
--- NOTE | 2022-03-02 11:04 | PDOC.CMDIS ---
- If Service Date Differs Date of service: 03/02/22 Time of Service: 11:04 LACE Index Scoring Tool - Questions: Length of Stay (in days): 2 Acuity (Admit via E.D.?): Yes Comorbidities: Chronic Pulmonary Disease, Dementia E.D. Visits: 1 - Answers: Total Score: 11 Risk of Readmission: High Risk Care Management Discharge Discharge Plan: Nery will return home to [place] with no new services. She will follow up with her community providers there and transport with family. Patient/Family Education Needs: review of discharge instructionss, follow up plan, medications, limitations, activity, discuss Ask Me Three
--- NOTE | 2022-03-02 12:00 | NT_ITS ---
Date of service: 03/02/22 Time of Service: 12:00 PT Notes Visit Reasons: Stercoral Colitis Patient was discharged to home this morning. No PT services were provided for this admission. Thank you for the opportunity to participate in the care of this patient. Alfreda Miner PT, DPT, CLT [facility] [place], [place]
== END 2022-03-02 12:02 | disposition home or self-care (01) ==
LOC: ER 20:01 → MS 03-01 07:41
PROVIDERS: Physician Assistant; Admitting Provider Student in an Organized Health Care Education/Training Program; Emergency Provider Physician Assistant; PCP Internal Medicine Geriatric Medicine; Visit Provider Student in an Organized Health Care Education/Training Program
DX: J69.0 Pneumonitis due to inhalation of food and vomit (principal); N39.0 Urinary tract infection, site not specified; K52.89 Other specified noninfective gastroenteritis and colitis; Z20.822 Contact with and (suspected) exposure to COVID-19; R41.82 Altered mental status, unspecified; E86.0 Dehydration; F41.9 Anxiety disorder, unspecified; I25.10 Atherosclerotic heart disease of native coronary artery without angina pectoris; J44.9 Chronic obstructive pulmonary disease, unspecified; F32.A Depression, unspecified; I10 Essential (primary) hypertension; G30.9 Alzheimer's disease, unspecified; F02.80 Dementia in other diseases classified elsewhere, unspecified severity, without behavioral disturbance, psychotic disturbance, mood disturbance, and anxiety; Z79.01 Long term (current) use of anticoagulants; R94.31 Abnormal electrocardiogram [ECG] [EKG]; K59.09 Other constipation; D72.829 Elevated white blood cell count, unspecified; R47.02 Dysphasia; E78.5 Hyperlipidemia, unspecified; Z79.899 Other long term (current) drug therapy; R45.1 Restlessness and agitation
CPT/HCPCS: 36415; 71250; 80053; 83690; 87040; 87635; 93005; 94640; 96361; 96365; 96366; 96374; 96375; 96376; 99285; 70450; 71045; 74018; 74176; 81003; 83605; 84484; 85025; 93010; 99217; 99220; 99223; 99225; G0378; J1956; J2060; J2270; J3490